=== PATIENT | male | born 1940 | race Caucasian/White ===

== ENCOUNTER → 2016-06-17 | Outpatient (CLI) | payer MEDICARE ==
--- NOTE | ~2016-06-17 | ECH ---
Transthoracic Echocardiography Report (TTE) Demographics Patient Name MARÍA GARCIA Date of Study 06/17/2016 Patient Number [id number] Visit Number [id number] Date of 1940 Room Number Accession Number [id number] Gender Male Age 75 year(s) Referring Keyshawn Grimm Clinical Research Analyst Jeanine Gonsalez Physician RDCS Physician Interpreting Nancie Lei Part Time Receptionist Physician Supervising Ordering Physician Keyshawn Grimm MD, MD/MLP Nurse Stress Soldering Technician Conclusions Contractility Score Summary Normal Left Ventricular contractility was noted. Summary Technically adequate exam. The estimated left ventricular ejection fraction is 60-65%. Diastolic assessment reveals Grade I diastolic dysfunction. Informed consent was obtained, bubble study was done, there is no evidence for a PFO or ASD. There is moderate aortic stenosis by the Continuity Equation. The peak velocity is 3.5 m/s, the mean gradient is 23 mmHg, and the valve area based on the continuity equation is 1.1 cm2, stroke volume index is 33 ml/m2. Peak velocity obtained at RSB. There is mild aortic regurgitation by color Doppler. Procedure Type of Study TTE procedure:Echo Complete SF. Procedure Date Date: 06/17/2016 Start: 09:01 AM Technical Quality: Adequate visualization Indications:CVA. Appropriate Use Criteria: 9 Height: 68 inches Weight: 192 pounds BSA: 2.01 m Rhythm: NSR HR: 89 bpm BP: 131/69 mmHg M-Mode/2D Measurements LV Diastolic Dimension: 5 cm LV Systolic Dimension: 3.26 cm LV Septum Diastolic: 0.98 cm LV PW Diastolic: 0.89 cm AO Root Dimension: 2.43 cm Cardiac Output: 5.99 l/min LA Dimension: 3.73 cm Cardiac Index: 2.98 l/min*m RV Diastolic Dimension: 3.57 cm LA volume index: 31 ml/m LVOT: 2.03 cm LVOT VTI: 20.79 cm RV Base: 3.7 cm LV Stroke volume: 67.25 ml RV Mid: 3 cm LV Stroke volume index: 33.46 ml/m TAPSE: 2.6 cm TDI-S': 14 cm/s Doppler Measurements AV Peak Velocity: 3.5 m/s MV Peak E-Wave: 0.71 m/s AV Peak Gradient: 49 mmHg MV Peak A-Wave: 0.88 m/s AV Mean Gradient: 23.31 mmHg MV E/A Ratio: 0.8 LVOT Peak Velocity: 0.92 m/s MV P1/2t: 82.5 msec AV Area (Continuity):1.05 cm AV P1/2t: 415.8 msec MV Deceleration Time: 252.8 msec MV Area (PHT): 2.67 cm PV Peak Velocity: 1.21 m/s E' Septal Velocity: 0.08 m/s PV Peak Gradient: 5.86 mmHg E' Lateral Velocity: 0.07 m/s A' Septal Velocity: 0.11 m/s A' Lateral Velocity: 0.11 m/s RA Area: 16.43 cm Findings Left Ventricle Normal left ventricle size and function. Diastolic assessment reveals Grade I diastolic dysfunction. Right Ventricle Normal right ventricle structure and function. Left Atrium Normal left atrial size. Informed consent was obtained, bubble study was done, there is no evidence for a PFO or ASD. Right Atrium Normal right atrial size. Mitral Valve Normal mitral valve structure and function. Aortic Valve There is moderate aortic stenosis by the Continuity Equation. The peak velocity is 3.5 m/s, the mean gradient is 23 mmHg, and the valve area based on the continuity equation is 1.1 cm2, stroke volume index is 33 ml/m2. Peak velocity obtained at RSB. There is mild aortic regurgitation by color Doppler. Tricuspid Valve Normal tricuspid valve structure and function. Trivial tricuspid regurgitation by color Doppler. Insufficient jet to calculate pulmonary pressures. Pulmonic Valve The pulmonic valve is not well visualized. Trivial pulmonic valve regurgitation by color Doppler. Pericardial Effusion No evidence of pericardial effusion. Miscellaneous Visualized portions of the aortic root and ascending aorta appear normal in size. Pleural Effusion No evidence of pleural effusion. Contractility Score LV regional wall motion:(0-Non visualized 1-Normal 2-Hypokinesis 3-Akinesis 4-Dyskinesis 5-Aneurysm) Signature
== END | disposition home or self-care (01) ==
LOC: RAD.S 08:00
DX: R29.810 Facial weakness (principal); R29.898 Other symptoms and signs involving the musculoskeletal system; G93.89 Other specified disorders of brain; E34.8 Other specified endocrine disorders; I35.2 Nonrheumatic aortic (valve) stenosis with insufficiency

== ENCOUNTER → 2016-06-24 | Outpatient (CLI) | payer MEDICARE | END | disposition home or self-care (01) | LOC: RAD.S 08:08 | DX: E34.8 Other specified endocrine disorders (principal) ==

== ENCOUNTER → 2016-07-08 | Outpatient (CLI) | payer MEDICARE | END | disposition home or self-care (01) | LOC: RAD.S 07-02 14:00 | DX: R26.2 Difficulty in walking, not elsewhere classified (principal); D49.7 Neoplasm of unspecified behavior of endocrine glands and other parts of nervous system ==